=== PATIENT | female | born 1975 | race Caucasian/White ===

== ENCOUNTER 2017-05-27 17:15 | Emergency (ER) | payer OTHER ==
--- NOTE | 2017-05-27 18:24 | EDM.PDOC ---
ED HPI GENERAL MEDICAL PROBLEM - General Chief Complaint: Abdominal Pain Stated Complaint: CHEST PAIN Time Seen by Provider: 05/27/17 18:10 Source of Information: Reports: Patient - History of Present Illness INITIAL COMMENTS - FREE TEXT/NARRATIVE: 42-year-old female has had epigastric and right upper quadrant pain radiating to her back intermittently for 3 months. It's not related to activity. She also claims it's not related to eating, antacids aren't helping. Occasional emesis but no fevers or chills, no diarrhea. Onset: Unknown/Unsure Location: Reports: Abdomen Quality: Reports: Burning Severity: Moderate Improves with: Reports: None Worsens with: Reports: None Associated Symptoms: Reports: Chest Pain (Pain radiates into the lower chest at times), Nausea/Vomiting. Denies: Diaphoresis, Fever/Chills Upper Abdomen Pain Score (Numeric/FACES): 6 - Related Data Allergies Allergy/AdvReac Type Severity Reaction Status Date / Time No Known Allergies Allergy Verified 05/27/17 17:57 Home Meds: Home Meds NK [No Known Home Meds] 05/27/17 [History] Past Medical History Respiratory History: Reports: Bronchitis, Recurrent [employer] History: Reports: Dysfunctional Uterine Bleeding - Infectious Disease History Infectious Disease History: Reports: Chicken Pox - Past Surgical History Female Surgical History: Reports: Hysterectomy Social & Family History - Tobacco Use Smoking Status *Q: Never Smoker - Caffeine Use Caffeine Use: Reports: Coffee - Recreational Drug Use Recreational Drug Use: No ED ROS GENERAL - Review of Systems Review Of Systems: See Below Constitutional: Reports: Malaise. Denies: Fever, Chills HEENT: Reports: No Symptoms Respiratory: Denies: Shortness of Breath Cardiovascular: Reports: Chest Pain GI/Abdominal: Reports: Abdominal Pain, Nausea, Vomiting. Denies: Constipation, Diarrhea : Reports: No Symptoms Skin: Reports: No Symptoms Neurological: Reports: No Symptoms Psychiatric: Reports: No Symptoms ED EXAM, GI/ABD - Physical Exam Exam: See Below Exam Limited By: No Limitations General Appearance: Alert, No Apparent Distress Eyes: Bilateral: Normal Appearance (No jaundice) Respiratory/Chest: No Respiratory Distress, Lungs Clear Cardiovascular: Regular Rate, Rhythm GI/Abdominal Exam: Soft, Tender (Patient is tender to palpation, especially in the right upper quadrant and epigastric area.) Course - Vital Signs Last Recorded V/S: Last Vital Signs Temp 97.5 F 05/27/17 19:30 Pulse 67 05/27/17 19:30 Resp 16 05/27/17 19:30 BP 131/71 05/27/17 19:30 Pulse Ox 100 05/27/17 19:30 - Orders/Labs/Meds Labs: Laboratory Tests 05/27/17 05/27/17 05/27/17 Range/Units 18:27 18:27 19:56 WBC 10.0 (4.5-11.0) K/uL RBC 4.67 (3.30-5.50) M/uL Hgb 12.7 (12.0-15.0) g/dL Hct 39.1 (36.0-48.0) % MCV 84 (80-98) fL MCH 27 (27-31) pg MCHC 33 (32-36) % Plt Count 210 (150-400) K/uL Neut % (Auto) 64 (36-66) % Lymph % (Auto) 28 (24-44) % [place] % (Auto) 6 (2-6) % Eos % (Auto) 2 (2-4) % Baso % (Auto) 0 (0-1) % Sodium 143 (140-148) mmol/L Potassium 3.9 (3.6-5.2) mmol/L Chloride 107 (100-108) mmol/L Carbon Dioxide 28 (21-32) mmol/L Anion Gap 8.0 (5.0-14.0) mmol/L BUN 18 (7-18) mg/dL Creatinine 0.8 (0.6-1.0) mg/dL Est Cr Clr Drug Dosing 67.14 mL/min Estimated GFR (MDRD) > 60 (>60) Glucose 103 (74-106) mg/dL Calcium 8.4 L (8.5-10.1) mg/dL Total Bilirubin 0.2 (0.2-1.0) mg/dL AST 18 (15-37) U/L ALT 24 (12-78) U/L Alkaline Phosphatase 105 (46-116) U/L Total Protein 7.1 (6.4-8.2) g/dL Albumin 3.3 L (3.4-5.0) g/dL Globulin 3.8 H (2.3-3.5) g/dL Albumin/Globulin Ratio 0.9 L (1.2-2.2) Amylase 44 (25-115) U/L Lipase 156 (73-393) U/L Urine Color Yellow Urine Appearance Clear Urine pH 5.0 (4.5-8.0) Ur Specific [place] 1.020 (1.008-1.030) Urine Protein Negative (NEGATIVE) mg/dL Urine Glucose (UA) Normal (NEGATIVE) mg/dL Urine Ketones Negative (NEGATIVE) mg/dL Urine Occult Blood Negative (NEGATIVE) Urine Nitrite Negative (NEGATIVE) Urine Bilirubin Negative (NEGATIVE) Urine Urobilinogen 1 (NORMAL) mg/dL Ur Leukocyte Esterase Negative (NEGATIVE) Urine RBC Not seen (0-5) Urine WBC 0-5 (0-5) Ur Epithelial Cells Few Amorphous Sediment Not seen Urine Bacteria Few Urine Mucus Many Meds: Medications Discontinued Medications Generic Name Dose Route Start Last Admin Trade Name Freq PRN Reason Stop Dose Admin Al Hydroxide/Mg Hydroxide 15 0 ml 05/27/17 19:29 05/27/17 19:46 ml/ Lidocaine HCl 15 ml PO 05/27/17 19:30 30 ml ONETIME ONE Administration - Re-Assessments/Exams Free Text/Narrative Re-Assessment/Exam: 05/27/17 18:23 CBC, CMP, amylase and lipase were obtained as well as a UA. Patient will likely need some type of visual assessment of her abdomen, especially the gallbladder. 05/27/17 20:18 Labs were all very reassuring. LFTs, alkaline phosphatase, amylase and lipase as well as white count were all normal. She was then given a GI cocktail which really didn't help, however she looked pretty comfortable. She has an appointment with her primary provider at 10 AM tomorrow, so we will have her return after fasting starting midnight, to get a gallbladder ultrasound that she could discuss the results with Dr. Vincent unless they are significantly abnormal we will take care of it through the emergency room. Departure - Departure Time of Disposition: 20:34 Disposition: Home, Self-Care 01 Condition: Good Clinical Impression: Abdominal pain Qualifiers: Abdominal location: right upper quadrant Qualified Code(s): R10.11 - Right upper quadrant pain - Discharge Information Instructions: Abdominal Pain, Adult, [id number] Referrals: Iam Vincent MD [Primary Care Provider] - Forms: ED Department Discharge Care Plan Goals: [place] diet tonight followed by nothing after midnight. Return at 7 AM to register for a gallbladder ultrasound and then recheck with Dr. Vincent as scheduled.
[2017-05-27] MEDS ORDERED: Alum Hydrox/Mag Hydrox/Simeth 15 ML, Lidocaine 2% 15 ML PO ONE ×2 (19:29)
== END 2017-05-27 20:33 | disposition home or self-care (01) ==
LOC: JP.ED 17:15
DX: R10.11 Right upper quadrant pain (principal); R10.13 Epigastric pain
CPT/HCPCS: 36415; 80053; 81001; 82150; 83690; 85025; 99284; A9270